=== PATIENT | female | born 1965 | race Caucasian/White ===

== ENCOUNTER 2016-06-03 12:46 | Emergency (ER) | payer BC ==
[2016-06-03 13:09] VITALS: RESP 18
--- NOTE | 2016-06-03 14:03 | UCPHY ---
H & P Patient Type: New Smoking Status: Never smoked Time Seen by Provider: 06/03/16 13:25 HPI/ROS: CHIEF COMPLAINT: cough, myalgias HISTORY OF PRESENT ILLNESS: 50-year-old female presents to urgent care by private vehicle complaining of cough and myalgias as well as sore throat that began acutely around 230 this morning. The patient felt fine yesterday. She was around someone who tested positive for influenza over the weekend. She denies chest pain or difficulty breathing. She does describe sore throat. She did take some ibuprofen with relief. She also describes nonproductive cough. She denies chest pain or shortness of breath. Denies rash. Has had subjective fevers and chills. Denies dysphagia. Denies vomiting or diarrhea. REVIEW OF SYSTEMS: Constitutional: Subjective fevers, chills Eyes: No double or blurry vision. ENT: sore throat. Respiratory: Cough as above. No shortness of breath. Cardiac: No chest pain. Gastrointestinal: No abdominal pain, vomiting or diarrhea. Genitourinary: No dysuria. Musculoskeletal: No neck or back pain. Skin: No rashes. Neurological: No headache. (Vera Rizvi) Past Medical/Surgical History: Negative (Vera Rizvi) Social History: and lives in [place] (Vera Rizvi) Physical Exam: General Appearance: Alert, no distress. Afebrile and nontoxic-appearing. Eyes: Pupils equal and round. Extraocular motions are all intact. ENT: Mouth: Mucous membranes moist. Mild posterior pharyngeal injection noted. No exudate. Respiratory: No wheezing, rhonchi, or rales, lungs are clear to auscultation. Cardiovascular: Regular rate and rhythm. Gastrointestinal: Abdomen is soft and nontender, no masses, no rebound or guarding, bowel sounds normal. Neurological: Alert and oriented x 3, cranial nerves II through XII grossly intact Skin: Warm and dry, no rashes. Musculoskeletal: Nontender to palpate along the cervical, thoracic or lumbar spine. Neck is supple. Extremities: Full range of motion and no peripheral edema. Psychiatric: Patient is oriented X 3, there is no agitation. (Vera Rizvi) Constitutional: Initial Vital Signs Temperature (C) 36.4 C 06/03/16 13:05 Heart Rate 65 06/03/16 13:05 Respiratory Rate 18 06/03/16 13:05 Blood Pressure 107/56 L 06/03/16 13:05 O2 Sat (%) 99 06/03/16 13:05 O2 Delivery Mode Room Air Allergies/Adverse Reactions: No Allergies [NKDA] Allergy (Verified 06/03/16 13:05) Home Medications: Medication Instructions Recorded Estradiol 06/03/16 Oseltamivir Phosphate [Tamiflu] 75 mg PO BID #10 cap 06/03/16 Medical Decision Making ED Course/Re-evaluation: 50-year-old female presents with cough myalgias and sore throat. Rapid strep test was negative. Nurse had already performed rapid flu swab which was negative. Given the close encounter with someone who tested positive for the flu and given her acuity of symptoms beginning earlier this morning, she will be started on Tamiflu. She will call for the results of her throat culture in 48 hours. She was instructed to return if she felt short of breath, if she had difficulty swallowing, or if she felt worse in any way. (Vera Rizvi) Differential Diagnosis: Including but not limited to influenza, viral upper respiratory infection, strep pharyngitis, mononucleosis, retropharyngeal abscess, bronchitis, pneumonia (Vera Rizvi) Other Provider: The patient was evaluated and managed by the Physician Cable Strander. My co- signature indicates that I have reviewed this chart and I agree with the findings and plan of care as documented. I am the secondary supervising physician. (Mahogany Hinojosa) - Data Points Laboratory Results: 06/03/16 06/03/16 Unknown 13:25 Influenza Typ A,B (DFA) NEGATIVE FOR FLU (NEGATIVE) Group A Strep Screen NEGATIVE (NEGATIVE) Group A Strep DNA NEGATIVE (NEGATIVE) Departure - Departure Disposition: Home, Routine, Self-Care Clinical Impression: Cough, Myalgia Condition: Good Instructions: Acute Cough (ED), Influenza (ED) Additional Instructions: Tamiflu twice daily for 5 days. You may use [id number] dextromethorphan to help suppress your cough as needed. Call [phone] for the results of your throat culture in 48 hours. Return if you feel acutely short of breath, if you developed worsening fever or if you feel worse in any way. Referrals: [facility] [Outside] - As per Instructions Prescriptions: Oseltamivir Phosphate [Tamiflu] 75 mg PO BID #10 cap - PQRS PQRS Measurement: Not applicable (Vera Rizvi)
[2016-06-03 14:07] VITALS: BP 111/64; PULSE 84; TEMP 98.6; O2SAT 95
== END 2016-06-03 14:08 | disposition home or self-care (01) ==
LOC: CED 12:46
DX: R05 Cough (principal); M79.1 Myalgia
CPT/HCPCS: 87400-PO; 87880-PO; G0463-PO